=== PATIENT | male | born 1960 | race Two or more races ===

== ENCOUNTER 2024-07-28 23:14 | Inpatient (IN) | payer BC, OTHER ==
[~2024-07-28] VITALS: Ht 170.2 cm; Wt 71.7 kg
[2024-07-28 23:42] LABS: BASOPHILS % (AUTO) 0.3 % (0.0-2.0); EOSINOPHILS # (AUTO) 0.1 K/uL (0.0-0.7); EOSINOPHILS % (AUTO) 0.8 % (0.0-6.0); HEMATOCRIT 30 % (39-51); HEMOGLOBIN 10.1 g/dL (13.5-17.5); LYMPHOCYTES # (AUTO) 0.9 K/uL (0.8-4.8); MEAN CORPUSCULAR HEMOGLOBIN 31 PG (26.0-33.0); MEAN CORPUSCULAR HGB CONC 34 g/dl (31.0-36.0); MEAN CORPUSCULAR VOLUME 91 fL (80-96); MONOCYTES # (AUTO) 1.1 K/uL (0.1-1.30); MONOCYTES % (AUTO) 10.5 % (2.0-12.0); NEUTROPHILS # (AUTO) 7.9 K/uL (1.8-8.9); NEUTROPHILS % (AUTO) 79.4 % (43.0-81.0); PLATELET COUNT (AUTO) 214 K/uL (150-450); RED CELL DISTRIBUTION WIDTH 14.5 % (11.5-15.0)
[2024-07-28 23:52] LABS: CALCIUM, SERUM 8.9 mg/dL (8.5-10.1); CARBON DIOXIDE 35 mmol/L (21-32); CHLORIDE 92 mmol/L (98-107); GLUCOSE 226 mg/dL (74-106); POTASSIUM 6.1 mmol/L (3.5-5.1); SODIUM SERUM 133 mmol/L (136-145); UREA NITROGEN, BLOOD 43 mg/dL (7-18)
[2024-07-29 00:06] LABS: ALANINE AMINOTRANSFERASE 10 U/L (12-78); ALBUMIN 3.4 g/dL (3.4-5.0); ALKALINE PHOSPHATASE 69 U/L (46-116); ASPARTATE AMINOTRANSFERASE 12 U/L (15-37); BILIRUBIN,TOTAL 0.8 mg/dL (0.2-1.0); NT-PRO BNP 10617 pg/mL (0-125); TOTAL PROTEIN, SERUM 6.7 g/dL (6.4-8.2)
[2024-07-29 00:10] LABS: CREATININE 8.7 mg/dL (0.6-1.3)
[2024-07-29 00:11] LABS: ALCOHOL, BLOOD < 3 mg/dL (0-10)
[2024-07-29] MEDS ORDERED: Calcium Gluconate 0.465 MEQ/ML VIAL IV ONE (00:24)
[2024-07-29] MEDS ORDERED: SODIUM POLYSTYRENE SULFONATE 15 G/60 ML BOTTLE ONE (00:24)
[2024-07-29] MEDS ORDERED: SODIUM BICARBONATE SYR 50 MEQ/50 ML DISP.SYRIN ONE (00:25)
[2024-07-29] MEDS ORDERED: DEXTROSE 50%-WATER 50 ML DISP.SYRIN ONE (00:25)
[2024-07-29] MEDS ORDERED: INSULIN REGULAR, HUMAN 100 UNIT/ML 10 ML VIAL ONE (00:25)
[2024-07-29] MEDS: SODIUM BICARBONATE SYR 50 MEQ/50 ML DISP.SYRIN IV ONE (00:31)
[2024-07-29] MEDS: SODIUM POLYSTYRENE SULF. PWD 15 GM UDC PO ONE (00:31)
[2024-07-29] MEDS: INSULIN REGULAR, HUMAN 100 UNIT/ML 10 ML VIAL IV ONE (00:31)
[2024-07-29] MEDS: DEXTROSE 50%-WATER 50 ML DISP.SYRIN IVP ONE (00:31)
[2024-07-29] MEDS: Calcium Gluconate 1GM/10ML 4.65 MEQ in IV NS 0.9% 100 ML IV ONE (00:31)
[2024-07-29 00:39] LABS: ACETONE, SERUM NEGATIVE (NEGATIVE)
[2024-07-29] MEDS ORDERED: ASPI-1169 PO (03:04)
[2024-07-29] MEDS ORDERED: ATOR20TA PO (03:04)
[2024-07-29] MEDS ORDERED: GABA600T12 PO (03:04)
[2024-07-29] MEDS ORDERED: SITA100T PO (03:04)
[2024-07-29] MEDS ORDERED: SITA1TAB6 PO (03:04)
[2024-07-29] MEDS ORDERED: LOSA100T31 PO (03:04)
[2024-07-29] MEDS ORDERED: CLONIDINE HCL 0.1 MG TABLET PO PRN (04:30)
[2024-07-29] MEDS ORDERED: ACETAMINOPHEN 325 MG TABLET PO PRN (04:30)
[2024-07-29] MEDS ORDERED: ZOLPIDEM TARTRATE 5 MG TABLET PO PRN (04:30)
[2024-07-29] MEDS ORDERED: DEXTROSE 50%-WATER 50 ML DISP.SYRIN IV PRN (04:30)
[2024-07-29] MEDS: INSULIN GLARGINE, 100 UNIT/ML CARTRIDGE SQ SCH (05:54)
[2024-07-29] MEDS: IV 1/2NS 1000 ML 1,000 ML IV PRN (06:02)
[2024-07-29 07:31] LABS: BASOPHILS % (AUTO) 0.1 % (0.0-2.0); EOSINOPHILS % (AUTO) 0.1 % (0.0-6.0); HEMATOCRIT 30 % (39-51); HEMOGLOBIN 9.9 g/dL (13.5-17.5); LYMPHOCYTES # (AUTO) 0.7 K/uL (0.8-4.8); LYMPHOCYTES % (AUTO) 5.7 % (20.0-44.0); MEAN CORPUSCULAR HEMOGLOBIN 30 PG (26.0-33.0); MEAN CORPUSCULAR HGB CONC 33 g/dl (31.0-36.0); MEAN CORPUSCULAR VOLUME 91 fL (80-96); MONOCYTES # (AUTO) 1.4 K/uL (0.1-1.30); MONOCYTES % (AUTO) 11.8 % (2.0-12.0); NEUTROPHILS # (AUTO) 9.8 K/uL (1.8-8.9); NEUTROPHILS % (AUTO) 82.3 % (43.0-81.0); PLATELET COUNT (AUTO) 208 K/uL (150-450); RED BLOOD CELL COUNT(AUTO) 3.31 MIL/uL (4.5-6.0); RED CELL DISTRIBUTION WIDTH 14.8 % (11.5-15.0); WHITE BLOOD COUNT (AUTO) 11.9 K/uL (4.3-11.0)
[2024-07-29 07:35] LABS: ALBUMIN 3.2 g/dL (3.4-5.0); BILIRUBIN,TOTAL 0.5 mg/dL (0.2-1.0); CALCIUM, SERUM 8.6 mg/dL (8.5-10.1); POTASSIUM 5.2 mmol/L (3.5-5.1); TOTAL PROTEIN, SERUM 6.4 g/dL (6.4-8.2)
[2024-07-29 07:36] LABS: CREATININE 8.9 mg/dL (0.6-1.3)
[2024-07-29 08:00] VITALS: BP 155/90; TEMP 97.5; O2SAT 90
[2024-07-29] MEDS: AMLODIPINE BESYLATE 5 MG TABLET PO SCH ×2 (08:12→09:00)
[2024-07-29] MEDS: INSULIN REGULAR, HUMAN 100 UNIT/ML 3 ML VIAL SQ PRN (08:15)
[2024-07-29] MEDS: BLOOD SUGAR DIAGNOSTIC 1 EACH STRIP VI SCH (08:21)
[2024-07-29] MEDS: GABAPENTIN 300 MG CAPSULE PO SCH (09:58)
[2024-07-29] MEDS: ATORVASTATIN 10 MG TABLET PO SCH (09:59)
[2024-07-29] MEDS: ASPIRIN 81 MG TAB.CHEW PO SCH (09:59)
[2024-07-29 12:00] VITALS: BP 154/88; TEMP 98.6; O2SAT 90
[2024-07-29] MEDS: SODIUM ZIRCONIUM CYCLOSILICATE 10 GM POWD.PACK PO SCH (12:45)
[2024-07-29 14:45] LABS: CALCIUM, SERUM 8.1 mg/dL (8.5-10.1); POTASSIUM 4.5 mmol/L (3.5-5.1)
[2024-07-29 14:52] LABS: ALBUMIN 2.8 g/dL (3.4-5.0); BILIRUBIN,TOTAL 0.6 mg/dL (0.2-1.0); TOTAL PROTEIN, SERUM 5.7 g/dL (6.4-8.2)
[2024-07-29 14:53] LABS: CREATININE 8.6 mg/dL (0.6-1.3)
[2024-07-29 16:00] VITALS: BP 140/81; TEMP 99; O2SAT 96
[2024-07-29 20:00] VITALS: BP 147/88; TEMP 98.6; O2SAT 94
[2024-07-29] MEDS: *INSULIN REGULAR(HUMULIN R)HUM 100 UNIT/ML VIAL SQ PRN (22:21)
[2024-07-30] VITALS: BP 145/82; TEMP 98.8; O2SAT 94
[2024-07-30 04:00] VITALS: BP 135/76; TEMP 98.5; O2SAT 95
[2024-07-30 07:18] LABS: BASOPHILS % (AUTO) 0.1 % (0.0-2.0); EOSINOPHILS % (AUTO) 0.4 % (0.0-6.0); HEMATOCRIT 28 % (39-51); HEMOGLOBIN 9.1 g/dL (13.5-17.5); LYMPHOCYTES # (AUTO) 0.7 K/uL (0.8-4.8); LYMPHOCYTES % (AUTO) 5.7 % (20.0-44.0); MEAN CORPUSCULAR HEMOGLOBIN 30 PG (26.0-33.0); MEAN CORPUSCULAR HGB CONC 33 g/dl (31.0-36.0); MEAN CORPUSCULAR VOLUME 91 fL (80-96); MONOCYTES # (AUTO) 1.4 K/uL (0.1-1.30); MONOCYTES % (AUTO) 11.1 % (2.0-12.0); NEUTROPHILS # (AUTO) 10.5 K/uL (1.8-8.9); NEUTROPHILS % (AUTO) 82.7 % (43.0-81.0); PLATELET COUNT (AUTO) 185 K/uL (150-450); RED BLOOD CELL COUNT(AUTO) 3.03 MIL/uL (4.5-6.0); RED CELL DISTRIBUTION WIDTH 14.7 % (11.5-15.0); WHITE BLOOD COUNT (AUTO) 12.7 K/uL (4.3-11.0)
[2024-07-30 07:54] LABS: ALBUMIN 2.8 g/dL (3.4-5.0); BILIRUBIN,TOTAL 0.8 mg/dL (0.2-1.0); MAGNESIUM 2.8 mg/dL (1.8-2.4); PHOSPHORUS 3.9 mg/dL (2.5-4.9); POTASSIUM 4.2 mmol/L (3.5-5.1)
[2024-07-30 07:55] LABS: THYROID STIMULATING HORMONE 0.28 uIU/mL (0.358-3.74)
[2024-07-30 07:56] LABS: CREATININE 8.8 mg/dL (0.6-1.3)
[2024-07-30 08:00] VITALS: BP 151/82; TEMP 98.3; O2SAT 91
[2024-07-30 08:09] LABS: COMPLEMENT C3, SERUM 87 mg/dL (82-167); COMPLEMENT C4, SERUM 25 mg/dL (12-38)
[2024-07-30] MEDS: AMLODIPINE BESYLATE 5 MG TABLET PO SCH (09:00)
[2024-07-30 10:07] LABS: HEPATITIS B SURFACE AB Non Reactive (.)
[2024-07-30 12:00] VITALS: BP 137/78; TEMP 98
[2024-07-30 12:07] LABS: *ANA ANTI-CENTROMERE B AB <0.2 AI (0.0-0.9); *ANA ANTI-DNA(DS) AB, QN <1 IU/mL (0-9); *ANA ANTI-JO-1 <0.2 AI (0.0-0.9); *ANA ANTICHROMATIN ANTIBODY <0.2 AI (0.0-0.9); *ANA RNP ANTIBODIES <0.2 AI (0.0-0.9); *ANA SJOGREN'S ANTI-SS-A <0.2 AI (0.0-0.9); *ANA SJOGREN'S ANTI-SS-B <0.2 AI (0.0-0.9); *ANAANTI-SCLERODERMA-70 AB <0.2 AI (0.0-0.9); *ANASMITH AB <0.2 AI (0.0-0.9)
[2024-07-30 16:00] VITALS: BP 141/78; TEMP 97.9; O2SAT 91
[2024-07-30 16:41] LABS: APPEARANCE,URINE CLEAR (CLEAR); BILIRUBIN,URINE NEGATIVE (NEGATIVE); BLOOD, URINE NEGATIVE Ery/uL (NEGATIVE); COLOR,URINE YELLOW (YELLOW); KETONES,URINE NEGATIVE (NEGATIVE); LEUKOCYTE ESTERASE ,URINE NEGATIVE (NEGATIVE); NITRITE, URINE NEGATIVE (NEGATIVE); PH,URINE 8.5 (5.0-8.0); PROTEIN,URINE 2+ mg/dl (NEGATIVE); UGLUCOSE TRACE mg/dL (NEGATIVE); UROBILINOGEN,URINE 0.2 EU/dL (0.2)
[2024-07-30 16:44] LABS: CREATININE, URINE 55.7 MG/DL (30.0-125.0); URINE TOTAL PROTEIN 82.1 mg/dL (0-11.9)
[2024-07-30] MEDS: FERROUS SULFATE (325 MG) 325 MG/TAB TABLET PO SCH (16:50)
[2024-07-30 17:42] LABS: ABG OXYGEN SATURATION 85.6 % (94.0-98.0); ABG PCO2 40.7 mmHg (35.0-48.0); ABG PH 7.522 (7.350-7.450); ABG PO2 48.5 mmHg (83.0-108.0); ABG TOTAL HEMOGLOBIN 9.5 G/dL (13.5-17.5); COHb 0.5 % (0.5-1.5); MetHb 0.1 % (0.0-1.5); O2Hb 85.1 % (94.0-97.0); SITE, ABG RIGHT RADIAL
[2024-07-30 18:01] LABS: ADD URINE CULTURE NO; BACTERIA,URINE 1+ /HPF (None Seen); MUCUS,URINE Few /LPF (None Seen); RBC,URINE 0-2 /HPF (0-2); SQUAMOUS EPITHELIAL CELL,UR 0-2 /HPF (None Seen)
[2024-07-30 19:50] LABS: EOSINOPHIL,URINE None Seen
[2024-07-30 20:00] VITALS: BP 149/82; TEMP 98.4; O2SAT 93
[2024-07-31] VITALS (38 sets, daily range): BP systolic 103–172; BP diastolic 66–115; TEMP 98.2–99.8; O2SAT 85–100
[2024-07-31 05:09] LABS: HEPATITIS B CORE AB, IgM Negative (Negative); HEPATITIS B CORE AB, TOTAL Negative (Negative)
[2024-07-31 05:16] LABS: ABG BASE EXCESS 5.3 mmol/L (-2.0-3.0); ABG OXYGEN SATURATION 92.5 % (94.0-98.0); ABG PCO2 43.9 mmHg (35.0-48.0); ABG PO2 68.2 mmHg (83.0-108.0); ABG TOTAL HEMOGLOBIN 9.7 G/dL (13.5-17.5); COHb 0.2 % (0.5-1.5); MetHb 0.2 % (0.0-1.5); O2Hb 92.1 % (94.0-97.0); SITE, ABG LEFT RADIAL
[2024-07-31 06:46] LABS: BASOPHILS % (AUTO) 0.2 % (0.0-2.0); EOSINOPHILS # (AUTO) 0.4 K/uL (0.0-0.7); EOSINOPHILS % (AUTO) 3.6 % (0.0-6.0); HEMATOCRIT 28 % (39-51); HEMOGLOBIN 9.2 g/dL (13.5-17.5); LYMPHOCYTES # (AUTO) 0.7 K/uL (0.8-4.8); MEAN CORPUSCULAR HEMOGLOBIN 31 PG (26.0-33.0); MEAN CORPUSCULAR HGB CONC 33 g/dl (31.0-36.0); MEAN CORPUSCULAR VOLUME 91 fL (80-96); MONOCYTES # (AUTO) 1.2 K/uL (0.1-1.30); MONOCYTES % (AUTO) 11.8 % (2.0-12.0); NEUTROPHILS # (AUTO) 7.9 K/uL (1.8-8.9); NEUTROPHILS % (AUTO) 77.4 % (43.0-81.0); PLATELET COUNT (AUTO) 178 K/uL (150-450); RED BLOOD CELL COUNT(AUTO) 3.02 MIL/uL (4.5-6.0); RED CELL DISTRIBUTION WIDTH 14.8 % (11.5-15.0); WHITE BLOOD COUNT (AUTO) 10.1 K/uL (4.3-11.0)
[2024-07-31 07:07] LABS: FOLIC ACID > 20.0 ng/mL (>3.0)
[2024-07-31 07:11] LABS: ALBUMIN 2.5 g/dL (3.4-5.0); BILIRUBIN,TOTAL 0.8 mg/dL (0.2-1.0); CALCIUM, SERUM 7.8 mg/dL (8.5-10.1); CREATININE 5.9 mg/dL (0.6-1.3); MAGNESIUM 2.4 mg/dL (1.8-2.4); PHOSPHORUS 3.9 mg/dL (2.5-4.9); POTASSIUM 3.7 mmol/L (3.5-5.1); TOTAL PROTEIN, SERUM 5.9 g/dL (6.4-8.2)
[2024-07-31 07:52] LABS: ABG BASE EXCESS 5.6 mmol/L (-2.0-3.0); ABG OXYGEN SATURATION 95.1 % (94.0-98.0); ABG PCO2 44.3 mmHg (35.0-48.0); ABG PH 7.451 (7.350-7.450); ABG PO2 75.8 mmHg (83.0-108.0); ABG TOTAL HEMOGLOBIN 9.6 G/dL (13.5-17.5); COHb 0.1 % (0.5-1.5); MetHb 0.2 % (0.0-1.5); O2Hb 94.8 % (94.0-97.0); SITE, ABG RIGHT RADIAL
[2024-07-31 08:10] LABS: PTH, INTACT 181 pg/mL (15-65)
[2024-07-31] MEDS: FUROSEMIDE 40 MG/4 ML VIAL IV ONE (09:14)
[2024-07-31] MEDS ORDERED: PIPERACILLIN /TAZOBACTAM 3.375 G in IV D5W 50 ML IV SCH (09:30)
[2024-07-31] MEDS: PIPERACILLIN /TAZOBACTAM 2.25 G in IV D5W 50 ML IV SCH (11:03)
[2024-08-01] VITALS (28 sets, daily range): BP systolic 119–165; BP diastolic 67–108; TEMP 98–99.4; O2SAT 90–100
[2024-08-01 06:07] LABS: *SPE A/G RATIO 1.2 (0.7-1.7); *SPE ALPHA-1-GLOBULIN 0.3 g/dL (0.0-0.4); *SPE ALPHA-2-GLOBULIN 0.7 g/dL (0.4-1.0); *SPE BETA GLOBULIN 0.8 g/dL (0.7-1.3); *SPE GLOBULIN, TOTAL 2.6 g/dL (2.2-3.9); *SPE M-SPIKE Not Observed g/dL (Not Observed); *SPE PROTEIN TOTAL 5.6 g/dL (6.0-8.5); *SPEGAMMA GLOBULIN 0.8 g/dL (0.4-1.8)
[2024-08-01 09:23] LABS: BASOPHILS % (AUTO) 0.4 % (0.0-2.0); EOSINOPHILS # (AUTO) 0.5 K/uL (0.0-0.7); EOSINOPHILS % (AUTO) 4.6 % (0.0-6.0); HEMATOCRIT 26 % (39-51); HEMOGLOBIN 8.7 g/dL (13.5-17.5); LYMPHOCYTES # (AUTO) 0.6 K/uL (0.8-4.8); LYMPHOCYTES % (AUTO) 5.8 % (20.0-44.0); MEAN CORPUSCULAR HEMOGLOBIN 30 PG (26.0-33.0); MEAN CORPUSCULAR HGB CONC 34 g/dl (31.0-36.0); MEAN CORPUSCULAR VOLUME 90 fL (80-96); MONOCYTES # (AUTO) 1.1 K/uL (0.1-1.30); MONOCYTES % (AUTO) 10.4 % (2.0-12.0); NEUTROPHILS # (AUTO) 8.5 K/uL (1.8-8.9); NEUTROPHILS % (AUTO) 78.8 % (43.0-81.0); PLATELET COUNT (AUTO) 190 K/uL (150-450); RED BLOOD CELL COUNT(AUTO) 2.86 MIL/uL (4.5-6.0); RED CELL DISTRIBUTION WIDTH 14.3 % (11.5-15.0); WHITE BLOOD COUNT (AUTO) 10.7 K/uL (4.3-11.0)
[2024-08-01 09:31] LABS: CALCIUM, SERUM 7.4 mg/dL (8.5-10.1); CREATININE 4.8 mg/dL (0.6-1.3); POTASSIUM 3.4 mmol/L (3.5-5.1)
[2024-08-01] MEDS: FUROSEMIDE 40 MG/4 ML VIAL IV SCH (17:09)
[2024-08-02] VITALS (20 sets, daily range): BP systolic 107–147; BP diastolic 55–84; TEMP 98–98.6; O2SAT 89–96
[2024-08-02 04:47] LABS: BASOPHILS % (AUTO) 0.2 % (0.0-2.0); EOSINOPHILS # (AUTO) 0.8 K/uL (0.0-0.7); EOSINOPHILS % (AUTO) 8.2 % (0.0-6.0); HEMATOCRIT 27 % (39-51); HEMOGLOBIN 8.9 g/dL (13.5-17.5); LYMPHOCYTES # (AUTO) 0.6 K/uL (0.8-4.8); MEAN CORPUSCULAR HEMOGLOBIN 30 PG (26.0-33.0); MEAN CORPUSCULAR HGB CONC 33 g/dl (31.0-36.0); MEAN CORPUSCULAR VOLUME 90 fL (80-96); MONOCYTES # (AUTO) 1.3 K/uL (0.1-1.30); MONOCYTES % (AUTO) 13.4 % (2.0-12.0); NEUTROPHILS # (AUTO) 6.8 K/uL (1.8-8.9); NEUTROPHILS % (AUTO) 72.2 % (43.0-81.0); PLATELET COUNT (AUTO) 233 K/uL (150-450); RED BLOOD CELL COUNT(AUTO) 2.95 MIL/uL (4.5-6.0); RED CELL DISTRIBUTION WIDTH 14.2 % (11.5-15.0); WHITE BLOOD COUNT (AUTO) 9.5 K/uL (4.3-11.0)
[2024-08-02 05:42] LABS: CALCIUM, SERUM 7.9 mg/dL (8.5-10.1); CREATININE 3.9 mg/dL (0.6-1.3)
[2024-08-02 05:44] LABS: POTASSIUM 2.8 mmol/L (3.5-5.1)
[2024-08-02] MEDS: POTASSIUM CHLORIDE 20 MEQ TAB.PRT.SR PO ONE (09:37)
[2024-08-03] VITALS (7 sets, daily range): BP systolic 129–149; BP diastolic 73–90; TEMP 97.7–98.4; O2SAT 92–98
[2024-08-03 06:49] LABS: CREATININE 3.4 mg/dL (0.6-1.3); MAGNESIUM 2.1 mg/dL (1.8-2.4); POTASSIUM 3.4 mmol/L (3.5-5.1)
[2024-08-03] MEDS: NEPRO VAN 237 ML CAN PO SCH (08:17)
[2024-08-03] MEDS: POTASSIUM CHLORIDE 20 MEQ TAB.PRT.SR PO ONE (09:47)
[2024-08-03] MEDS: FUROSEMIDE 40 MG/4 ML VIAL IV SCH (16:34)
[2024-08-03] MEDS: GABAPENTIN 100 MG CAPSULE PO ONE (16:58)
[2024-08-04] VITALS (7 sets, daily range): BP systolic 136–154; BP diastolic 76–87; TEMP 97.7–98.8; O2SAT 89–99
[2024-08-04 04:07] LABS: METHYLMALONIC ACID 403 nmol/L (0-378)
[2024-08-04 07:40] LABS: CALCIUM, SERUM 8.5 mg/dL (8.5-10.1); CREATININE 4.9 mg/dL (0.6-1.3); POTASSIUM 3.6 mmol/L (3.5-5.1)
[2024-08-04] MEDS ORDERED: HEPARIN SODIUM, PORCINE 1,000 UNIT/ML VIAL ONE (15:43)
[2024-08-04] MEDS ORDERED: IOHEXOL 0 ML IV ONE (15:43)
[2024-08-04] MEDS ORDERED: LIDOCAINE HCL/MPF 1% 30 ML VIAL IJ ONE (15:43)
[2024-08-04] MEDS ORDERED: FENTANYL PF 100MCG/2ML AMPUL ONE (16:10)
[2024-08-05] VITALS: BP 143/84; TEMP 98.8; O2SAT 99
[2024-08-05] MEDS: ANCEF 1 GM/50 ML D5W IV SCH (01:24)
[2024-08-05 04:00] VITALS: BP 141/82; TEMP 98.6; O2SAT 96
[2024-08-05 08:00] VITALS: BP 141/78; TEMP 98.8; O2SAT 99
[2024-08-05] MEDS: FUROSEMIDE 40 MG TABLET PO SCH (09:00)
[2024-08-05 12:00] VITALS: BP 130/77; TEMP 98.4; O2SAT 95
[2024-08-05 16:00] VITALS: BP 135/69; TEMP 98.6; O2SAT 94
[2024-08-05 20:00] VITALS: BP_SYST 116; BP_DIAS 62; BP_DIAS 72; TEMP 99; O2SAT 96
[2024-08-05] MEDS: INSULIN GLARGINE, 100 UNIT/ML CARTRIDGE SQ SCH (21:54)
[2024-08-06] VITALS: BP 138/73; TEMP 98.2; O2SAT 95
[2024-08-06 00:15] VITALS: BP 138/73; TEMP 98.2; O2SAT 95
[2024-08-06 04:00] VITALS: BP 136/74; TEMP 98.2; O2SAT 92
[2024-08-06 05:01] VITALS: BP 136/74; TEMP 98.2; O2SAT 92
[2024-08-06 07:25] LABS: INR 1.08 (0.91-1.10); PARTIAL THROMBOPLASTIN TIME 29.3 SEC (24.3-34.3); PROTHROMBIN TIME 11.4 SECS (9.2-11.1)
[2024-08-06 07:37] LABS: CALCIUM, SERUM 8.6 mg/dL (8.5-10.1); CREATININE 4.9 mg/dL (0.6-1.3); POTASSIUM 3.7 mmol/L (3.5-5.1)
[2024-08-06 08:00] VITALS: BP 132/73; TEMP 98.6; O2SAT 91
[2024-08-06] MEDS ORDERED: FURO40TA5 PO (08:45)
[2024-08-06] MEDS ORDERED: INSU100V28 SQ (08:45)
[2024-08-06] MEDS ORDERED: FERR325T28 PO (08:45)
[2024-08-06] MEDS ORDERED: AMLO-212 PO (08:45)
[2024-08-06] MEDS ORDERED: Insulin Glargine,Hum SQ (08:45)
[2024-08-06 16:00] VITALS: BP 129/74; TEMP 98.2; O2SAT 97
[2024-08-09 10:07] LABS: VITAMIN B1 THIAMINE,WB 149.4 nmol/L (66.5-200.0)
== END 2024-08-06 18:36 | disposition home or self-care (01) | DRG 673 ==
LOC: EDBD 23:16 → ER 23:16 → TELE1 07-29 03:36 → TELE-TD 07-29 04:20 → TELE1 07-29 10:14 → ICU 07-31 06:29 → TELE 08-02 14:04 → MED 08-06 15:44
PROVIDERS: ADMIT Internal Medicine; ATTEND Internal Medicine
PROC: 06HY33Z Insertion of Infusion Device into Lower Vein, Percutaneous Approach (ICD-10-PCS; principal; 2024-07-30)
PROC: 5A1D70Z Performance of Urinary Filtration, Intermittent, Less than 6 Hours Per Day (ICD-10-PCS; 2024-07-30)
PROC: 0JH63XZ Insertion of Tunneled Vascular Access Device into Chest Subcutaneous Tissue and Fascia, Percutaneous Approach (ICD-10-PCS; 2024-08-04)
PROC: 02HV33Z Insertion of Infusion Device into Superior Vena Cava, Percutaneous Approach (ICD-10-PCS; 2024-08-04)
PROC: B518ZZA Fluoroscopy of Superior Vena Cava, Guidance (ICD-10-PCS; 2024-08-04)
DX: N17.9 Acute kidney failure, unspecified (principal); I50.43 Acute on chronic combined systolic (congestive) and diastolic (congestive) heart failure; J96.01 Acute respiratory failure with hypoxia; E87.3 Alkalosis; J98.11 Atelectasis; I13.0 Hypertensive heart and chronic kidney disease with heart failure and stage 1 through stage 4 chronic kidney disease, or unspecified chronic kidney disease; E87.5 Hyperkalemia; E86.0 Dehydration; K52.9 Noninfective gastroenteritis and colitis, unspecified; E78.5 Hyperlipidemia, unspecified; E11.22 Type 2 diabetes mellitus with diabetic chronic kidney disease; M89.8X9 Other specified disorders of bone, unspecified site; K21.9 Gastro-esophageal reflux disease without esophagitis; R25.1 Tremor, unspecified; E11.65 Type 2 diabetes mellitus with hyperglycemia; I25.10 Atherosclerotic heart disease of native coronary artery without angina pectoris; I34.0 Nonrheumatic mitral (valve) insufficiency; I27.20 Pulmonary hypertension, unspecified; Z79.84 Long term (current) use of oral hypoglycemic drugs; Z79.82 Long term (current) use of aspirin; Z79.899 Other long term (current) drug therapy; D63.8 Anemia in other chronic diseases classified elsewhere; D50.9 Iron deficiency anemia, unspecified; E87.6 Hypokalemia; N18.30 Chronic kidney disease, stage 3 unspecified
CPT/HCPCS: 36415; 36600; 70450-TC; 71045-TC; 76770-TC; 80048-TC; 80053-TC; 81001; 82010-TC; 82550-TC; 82570-TC; 82607-TC; 82803-TC; 82962-TC; 83540-TC; 83735-TC; 83880; 83921; 83970; 84100-TC; 84155; 84165; 84300-TC; 84425; 84443-TC; 84484-TC; 85025-TC; 85610-TC; 85652-TC; 85730-TC; 86225; 86235; 86704; 86705; 86706; 86803; 87340; 90935-TC; 93307-TC; 94799-TC; 97110-TC; 97112-TC; 97116-TC; 97530-TC; 97535-TC; A4223; A6253; C1750; C1757; C1769; C1894; G0378; G0480; J0610; J0690; J1644; J1815; J1940; J2543; J2704; J3010; J3490; J7030; J7050; J7060; Q9967